=== PATIENT | male | born 1960 | race Caucasian/White ===

== ENCOUNTER 2020-02-13 18:13 | Emergency (ER) | payer BC, SELFPAY ==
[2020-02-13 18:35] VITALS: BP 138/82; PULSE 87; RESP 14; TEMP 36.7; O2SAT 97; BMI 29.1
--- NOTE | 2020-02-13 18:37 | USR_ITS ---
PROCEDURE INFORMATION: Exam: US Duplex Left Lower Extremity Veins, Limited Exam date and time: 02/13/2020 6:38 PM Age: 59 years old Clinical indication: Pain; Leg, upper; Left; Additional info: Swelling TECHNIQUE: Imaging protocol: Real-time Duplex ultrasound of the Left Lower Extremity with 2-D pelayo scale, color Doppler flow and spectral waveform analysis with image documentation. Limited exam focused on the left lower extremity veins. COMPARISON: No relevant prior studies available. FINDINGS: Left deep veins: Unremarkable. The common femoral, femoral, proximal profunda femoral and popliteal veins are patent without thrombus. Normal Doppler waveforms. Normal compressibility and/or augmentation response. Left superficial veins: Unremarkable. Saphenofemoral junction is patent without thrombus. Soft tissues: Unremarkable. US/CV venous duplex [facility] [id number] IMPRESSION: No evidence of deep vein thrombosis.
--- NOTE | 2020-02-13 19:53 | ED_ITS ---
HPI - Extremity Problem General: Chief complaint: Extremity Problem,Nontraumatic Stated complaint: swelling in left leg Time Seen by Provider: 02/13/20 19:26 History of Present Illness: HPI Narrative: Patient is a 59-year-old male who comes to the ED with left leg pain and swelling. Patient says leg pain started approximately a week ago. He says he has been working on a shed and climbing up and down a ladder bunch right before left leg pain started. He thinks he might of pulled a muscle. Pain is located in left hamstring region and only bothers him when he is up moving around. In the morning pain in left hamstring region is worse and improves throughout the day as he is up moving around. He noticed that he had some left lower leg edema approximately 2 days ago. Denies any chest pain, shortness of breath or hemoptysis. Denies any past DVTs. Associated symptoms: Deny chest pain, fever(s) or rash Review of Systems Const: Denies: fever(s), chills or fatigue Eyes: Denies: change in vision or eye discomfort ENMT: Denies: throat pain, odynophagia, nasal discharge or nasal congestion Card: Denies: chest pain, palpitations, edema, swelling of feet/ankles, dyspnea on exertion or orthopnea Resp: Denies: dyspnea, productive cough or non-productive cough GI: Denies: abdominal pain, nausea, vomiting, diarrhea, constipation or hematochezia : Denies: flank pain, difficulty urinating, dysuria or hematuria Musc: Reports: extremity pain (Left hamstring) and extremity swelling (Left lower leg swelling.); Denies: neck pain or back pain Skin/Breast: Denies: rash or new lesions Neuro: Denies: headache(s), numbness in extremities or weakness in extremities Physical Exam Const: COMMON NORMALS: no acute distress, patient oriented x3, healthy appearing and alert GENERAL APPEARANCE: cooperative and comfortable HENMT: COMMON NORMALS: normocephalic HEAD & SCALP: normocephalic MOUTH: Normal oral and palatal mucosa present THROAT: posterior oropharynx normal and uvula midline Neck/C-Spine: COMMON NORMALS: supple GENERAL: Yes normal visual inspection Resp: COMMON NORMALS: normal respiratory effort, No retractions, No use of accessory muscles and clear to auscultation bilaterally AUSCULTATION: clear to auscultation bilaterally Cardio: COMMON NORMALS: regular rate, regular rhythm, S1 normal heart sound present, S2 normal heart sound present, No gallops present (Cardio), No clicks present (Cardio), No murmurs present (Cardio) and Peripheral pulses 2+ throughout RATE: regular rate RHYTHM: regular rhythm HEART SOUNDS: S1 normal heart sound present and S2 normal heart sound present PERIPHERAL PULSES: Peripheral pulses 2+ throughout GI: COMMON NORMALS: Normal to inspection, nondistended, normoactive bowel sounds present, Soft to palpation, non-tender and no masses PALPATION: Yes Soft to palpation : COMMON NORMALS: Yes no CVA tenderness BLADDER/KIDNEY EXAM: Yes no CVA tenderness Back/Pelvis: COMMON NORMALS: no CVA tenderness Extremity: COMMON NORMALS: full ROM and no calf tenderness NARRATIVE EXTREMITY EXAM: No calf tenderness or tenderness to palpation all throughout left leg. Patient did have 1+ pitting edema on the left lower extremity that went up to middle of the lower leg in between knee and ankle. GENERAL: Yes edema (RLE had no edema present. LLE had 1+ pitting edema) Neuro: COMMON NORMALS: patient oriented x3 SENSORIUM/ORIENTATION: Yes alert Skin: GENERAL SKIN EXAM: dry skin Course Vital Signs: Vital signs: Vital Signs Temperature 98.1 F 02/13/20 18:35 Pulse Rate 87 02/13/20 18:35 Respiratory Rate 16 02/13/20 20:18 Blood Pressure 138/82 02/13/20 18:35 Pulse Oximetry 97 02/13/20 18:35 MDM - Extremity (Nontraumatic) MDM Narrative: Medical decision making narrative: Patient is a 59-year-old male comes to the ED with left leg pain and swelling. He denies any accident or injury. He did state that he has been working a bunch over the last week and and thinks he might of pulled a muscle in the back of his leg. Denies chest pain, shortness of breath or hemoptysis. Exam findings shows no calf tenderness and no tenderness to any palpation of the left leg. 1+ pitting edema to left lower extremity. Ultrasound venous duplex of left lower extremity showed no DVTs. Patient was discharged with muscle strain and told to ice and elevate left leg. Follow-up with PCP in 7 to 10 days. Return to ED precautions given. Patient understood and agreed with plan. Imaging Data^: US Vascular: Attestation: I personally reviewed and interpreted this imaging study as follows: Radiologist's impression: [address] [address] Ultrasound Report Signed Patient: Mohan Alcazar #: [id number] : 8Acct#:[id number] Age/Sex: 59 / MADM Date: 02/13/20 Loc: ERRoom/Bed: Attending Dr: Ordering Provider/Ordering MD: Jeremias Lloyd MD Date of Service: 02/13/20 Procedure(s): [place] [address] Accession Number(s): [id number] Report Number: [id number] PROCEDURE INFORMATION: Exam: US Duplex Left Lower Extremity Veins, Limited Exam date and time: 02/13/2020 6:38 PM Age: 59 years old Clinical indication: Pain; Leg, upper; Left; Additional info: Swelling TECHNIQUE: Imaging protocol: Real-time Duplex ultrasound of the Left Lower Extremity with 2-D pelayo scale, color Doppler flow and spectral waveform analysis with image documentation. Limited exam focused on the left lower extremity veins. COMPARISON: No relevant prior studies available. FINDINGS: Left deep veins: Unremarkable. The common femoral, femoral, proximal profunda femoral and popliteal veins are patent without thrombus. Normal Doppler waveforms. Normal compressibility and/or augmentation response. Left superficial veins: Unremarkable. Saphenofemoral junction is patent without thrombus. Soft tissues: Unremarkable. US/[place] [address] IMPRESSION: No evidence of deep vein thrombosis. Dictated By:Erin Luz MD Signed By:Erin Luz MDSigned Date/Time:02/13/201949 DD/ 48 Discharge Plan Discharge Patient Disposition: Home Clinical Impression: Muscle strain of left lower extremity Qualifiers: Encounter type: initial encounter Qualified Code(s): S86.912A - Strain of unspecified muscle(s) and tendon(s) at lower leg level, left leg, initial encounter Condition: Stable Discharge Orders: Discharge ED (Routine); Ordered 02/13/20 Ordered By: Jose Hodge Discharge Diet: Regular Discharge Activity: Increase activity as tolerated Patient Instructions: Muscle Strain (ED) Activity Restrictions/Additional Instructions: Follow-up with medical provider as directed in 7 to 10 days for reevaluation. Rest, ice and elevate left leg. Take [id number] Tylenol or ibuprofen for pain. Continue taking all home meds as previously prescribed. Return to the ER or your medical provider if condition worsens or you have any chest pain, shortness of breath or coughing up blood. Please read and understand discharge instructions. If any questions, please ask. Coding Level of Care Code ED Ict Support Technicians for [facility] Fwd Exam Comprehensive
[2020-02-13 20:18] VITALS: RESP 16
== END 2020-02-13 20:18 | disposition home or self-care (01) ==
PROVIDERS: Emergency Provider Physician Assistant
DX: S86.912A Strain of unspecified muscle(s) and tendon(s) at lower leg level, left leg, initial encounter (principal); X50.9XXA Other and unspecified overexertion or strenuous movements or postures, initial encounter
CPT/HCPCS: 12345; 93971; 99281; 99282